=== PATIENT | female | born 1955 | race Caucasian/White ===

== ENCOUNTER 2016-10-22 14:19 | Emergency (ER) | payer MEDICAID ==
[~2016-10-22] VITALS: Ht 162.6 cm; Wt 113.4 kg
[2016-10-22 14:20] VITALS: BP 131/74
[2016-10-22 15:51] LABS: BASOPHILS % (AUTO) 1.8 % (0.0-2.0); EOSINOPHILS % (AUTO) 5.7 % (0.0-3.0); LYMPHOCYTES % (AUTO) 17.4 % (20.0-45.0); MEAN CORPUSCULAR HEMOGLOBIN 27.2 PG (27.0-31.0); MEAN CORPUSCULAR HGB CONC 30.9 G/DL (32.0-36.0); MEAN CORPUSCULAR VOLUME 88 FL (80-99); MEAN PLATELET VOLUME 8.2 FL (6.5-10.1); MONOCYTES % (AUTO) 12.4 % (1.0-10.0); NEUTROPHILS % (AUTO) 62.7 % (45.0-75.0); PLATELET COUNT 147 K/UL (150-450); RED BLOOD COUNT 4.15 M/UL (4.20-5.40); RED CELL DISTRIBUTION WIDTH 15.5 % (11.6-14.8); WHITE BLOOD COUNT 7.1 K/UL (4.8-10.8)
[2016-10-22 16:00] VITALS: BP 128/67
[2016-10-22 16:04] LABS: TROPONIN I < 0.30 ng/mL (<=0.30)
[2016-10-22 16:06] LABS: CALCIUM 8.4 mg/dL (8.6-10.2); CREATININE 3.2 mg/dL (0.5-0.9); GLOMERULAR FILTRATION RATE 14.8 mL/min (>60); TOTAL PROTEIN 6.2 g/dL (6.6-8.7)
[2016-10-22 16:10] LABS: MAGNESIUM 0.8 mg/dL (1.7-2.5)
[2016-10-22 16:17] LABS: CKMB 2.6 ng/mL (< 3.8)
[2016-10-22] MEDS ORDERED: Morphine Sulfate 4mg/ml Inj IVP ONE (16:45)
--- NOTE | 2016-10-22 16:51 | Emergency Room Report ---
History of Present Illness General Chief Complaint: Abnormal Labs Source: EMS Present Illness HPI 61-year-old female presents to ED for evaluation. Patient resides in SNF. She referred for low magnesium level. PMD Dr. Joseph referred patient because he is trying to treat the low magnesium with oral medication but he keeps getting lower. Has been going on for several days now. Upon arrival patient is in no signs of distress. Complaining of some generalized pain. /10. Throbbing. Nonradiating. No other aggravating or relieving factors. Denies any fevers or chills. Denies chest pain or shortness of breath. Denies nausea or vomiting. No other aggravating or relieving factors. Any other associated symptoms Allergies: Coded Allergies: No Known Allergies (Unverified , 10/22/16) Patient History Past Medical History: DM, HTN, asthma Past Surgical History: none Pertinent Family History: none Social History: Denies: alcohol use, drug use, smoking Now: No Immunizations: UTD Reviewed Nursing Documentation: PMH: Agreed, PSxH: Agreed Nursing Documentation-PMH Past Medical History: No History, Except For Hx Hypertension: Yes Hx Asthma: Yes Hx COPD: No - PNA Hx Diabetes: Yes Hx Dialysis: No - [facility] CELLULIT[facility] Review of Systems All Other Systems: negative except mentioned in HPI Physical Exam Vital Signs Date Time Temp Pulse Resp B/P Pulse Ox O2 Delivery O2 Flow Rate FiO2 10/22/16 14:16 98.6 92 20 84/35 90 Room Air Sp02 EP Interpretation: reviewed, normal General Appearance: no apparent distress, alert, GCS 15, non-toxic, obese Head: normocephalic, atraumatic Eyes: bilateral eye PERRL, bilateral eye normal inspection ENT: hearing grossly normal, normal pharynx, no angioedema, normal voice Neck: full range of motion, supple/symm/no masses Respiratory: chest non-tender, lungs clear, normal breath sounds, speaking full sentences Cardiovascular #1: regular rate, rhythm, no edema Cardiovascular #2: 2+ carotid (R), 2+ carotid (L), 2+ radial (R), 2+ radial (L) , 2+ dorsalis pedis (R), 2+ dorsalis pedis (L) Gastrointestinal: normal bowel sounds, non tender, soft, non-distended, no guarding, no rebound Rectal: deferred Genitourinary: normal inspection, no CVA tenderness Musculoskeletal: back normal, gait/station normal, normal range of motion, non- tender Neurologic: alert, oriented x3, responsive, motor strength/tone normal, sensory intact, speech normal Psychiatric: judgement/insight normal, memory normal, mood/affect normal, no suicidal/homicidal ideation Reflexes: 3+ bicep (R), 3+ bicep (L), 3+ tricep (R), 3+ tricep (L), 3+ knee (R) , 3+ knee (L) Skin: normal color, no rash, warm/dry, well hydrated Lymphatic: no adenopathy Medical Decision Making Diagnostic Impression: Primary Impression: Hypomagnesemia Additional Impressions: Hyperkalemia CKD (chronic kidney disease) Qualified Codes: N18.4 - Chronic kidney disease, stage 4 (severe) ER Course Hospital Course 61-year-old female referred to ED for abnormal labs. Reported low magnesium and elevated creatinine Differential diagnoses include: hypomagnesemia, torsades, hypokalemia Clinical course Patient placed on stretcher. on cardiac catheterization technician. After initial history and physical I ordered labs, EKG, IVFs labs reviewed- potassium 5.0. Cr 3.2. Hemoglobin/hematocrit normal. no leukocytosis, Mag 0.8, trop negative EKG - NSR, no acute changes, no prolonged QT Given Kayexalate. given magnesium IV. because of insurance patient will be transferred I. I feel this is a highly complex case requiring extensive working including EKG/Rhythm strip, Xray/CT/US, Blood/urine lab work, repeat exams while in ED, and administration of strong opiates/narcotics for pain control, admission to hospital or close patient follow up. Diagnosis - hyperkalemia, CKD, hypomagnesemia transferred to [facility] in serious condition Labs Test 10/22/16 15:32 White Blood Count 7.1 K/UL (4.8-10.8) Red Blood Count 4.15 M/UL (4.20-5.40) Hemoglobin 11.3 G/DL (12.0-16.0) Hematocrit 36.6 % (37.0-47.0) Mean Corpuscular Volume 88 FL (80-99) Mean Corpuscular Hemoglobin 27.2 PG (27.0-31.0) Mean Corpuscular Hemoglobin Concent 30.9 G/DL (32.0-36.0) Red Cell Distribution Width 15.5 % (11.6-14.8) Platelet Count 147 K/UL (150-450) Mean Platelet Volume 8.2 FL (6.5-10.1) Neutrophils (%) (Auto) 62.7 % (45.0-75.0) Lymphocytes (%) (Auto) 17.4 % (20.0-45.0) Monocytes (%) (Auto) 12.4 % (1.0-10.0) Eosinophils (%) (Auto) 5.7 % (0.0-3.0) Basophils (%) (Auto) 1.8 % (0.0-2.0) Sodium Level 138 mEQ/L (135-145) Potassium Level 5.0 mEQ/L (3.4-4.9) Chloride Level 97 mEQ/L (98-107) Carbon Dioxide Level 26 mEQ/L (20-30) Anion Gap 15 (5-15) Blood Urea Nitrogen 20 mg/dL (7-23) Creatinine 3.2 mg/dL (0.5-0.9) Estimat Glomerular Filtration Rate 14.8 mL/min (>60) Glucose Level 200 mg/dL (74-106) Calcium Level 8.4 mg/dL (8.6-10.2) Magnesium Level 0.8 mg/dL (1.7-2.5) Total Bilirubin 0.5 mg/dL (0.0-1.2) Aspartate Amino Transf (AST/SGOT) 35 U/L (5-40) Alanine Aminotransferase (ALT/SGPT) 39 U/L (3-33) Alkaline Phosphatase 82 U/L (35-104) Total Creatine Kinase 42 U/L (26-140) Creatine Kinase MB 2.6 ng/mL (< 3.8) Creatine Kinase MB Relative Index 6.1 Troponin I < 0.30 ng/mL (<=0.30) Pro-B-Type Natriuretic Peptide 178 pg/mL (0-125) Total Protein 6.2 g/dL (6.6-8.7) Albumin 3.2 g/dL (3.5-5.2) Globulin 3.0 g/dL Albumin/Globulin Ratio 1.0 (1.0-2.7) EKG Diagnostic Results Rate: normal Rhythm: NSR ST Segments: no acute changes ASA given to the pt in ED: No Rhythm Strip Diag. Results EP Interpretation: yes Rhythm: NSR, no PVC's, no ectopy Last Vital Signs Date Time Temp Pulse Resp B/P Pulse Ox O2 Delivery O2 Flow Rate FiO2 10/22/16 14:20 98.0 90 17 131/74 98 Room Air Status: improved Disposition: XFER T-[facility] Condition: Serious Referrals: HOLLY LAMAS (PCP) PETER SANON M.D. October 22, 2016 16:51
[2016-10-22 18:00] VITALS: BP 117/70
[2016-10-22] MEDS ORDERED: AMARYL2 MG ORAL (18:07)
[2016-10-22] MEDS ORDERED: VITAMIN C500 M1 ORAL (18:09)
[2016-10-22] MEDS ORDERED: BENADRYL25 MG ORAL (18:12)
[2016-10-22] MEDS ORDERED: BISACODYL5 MG ORAL (18:22)
[2016-10-22] MEDS ORDERED: BISACODYL10 M1 RC (18:22)
[2016-10-22] MEDS ORDERED: SYMBICORT 16010.2 G1 IH (18:40)
[2016-10-22] MEDS ORDERED: CALAMINE LOTIO177 ML TP (18:41)
[2016-10-22] MEDS ORDERED: CATAPRES0.1 MG ORAL (18:43)
[2016-10-22] MEDS ORDERED: FLEET ENEMA133 ML RECTAL (18:44)
[2016-10-22] MEDS ORDERED: LEVEMIR FL100 UNIT/1 SUBQ (18:52)
[2016-10-22] MEDS ORDERED: MELATONIN 1 MG1 EAC1 ORAL (18:56)
[2016-10-22] MEDS ORDERED: MELATONIN1 M2 PO (18:56)
[2016-10-22] MEDS ORDERED: METFORMIN HCL500 M1 ORAL (18:57)
[2016-10-22] MEDS ORDERED: MILK OF MA400 MG/51 ORAL (19:00)
[2016-10-22] MEDS ORDERED: MORPHINE SULFAT15 MG PO (19:16)
[2016-10-22] MEDS ORDERED: MULTIVITAMINS1 EAC2 ORAL (19:17)
[2016-10-22] MEDS ORDERED: NEXIUM40 MG ORAL (19:24)
[2016-10-22 19:25] VITALS: BP 121/66
[2016-10-22] MEDS ORDERED: NITROGLYCERIN0.4 MG SL (19:25)
[2016-10-22] MEDS ORDERED: NYSTATIN15 GM TOPIC (19:35)
[2016-10-22] MEDS ORDERED: POLYVINYL ALCOH15 ML OP (19:37)
[2016-10-22] MEDS ORDERED: Sodium Polystyrene Sulfonate 15gm Powder ORAL ONE (19:45)
[2016-10-22] MEDS ORDERED: ALBUTEROL2.5 MG/3 M INH (19:50)
[2016-10-22 21:14] VITALS: BP 124/76
[2016-10-22 21:25] VITALS: BP 124/76
--- NOTE | 2016-10-23 16:26 | Cardiology Report ---
APPROVED REPORT EKG Measurement Heart [id number] Normal sinus rhythm Low voltage QRS Cannot rule out Anterior infarct, age undetermined Abnormal ECG
== END 2016-10-22 21:25 | disposition short-term general hospital (02) ==
LOC: EDBD 14:19 → EMR 14:43 → EDBEDREQ 16:34 → EMR 21:25
DX: N18.4 Chronic kidney disease, stage 4 (severe) (principal); E83.42 Hypomagnesemia; E87.5 Hyperkalemia; E11.22 Type 2 diabetes mellitus with diabetic chronic kidney disease; I12.9 Hypertensive chronic kidney disease with stage 1 through stage 4 chronic kidney disease, or unspecified chronic kidney disease; J45.909 Unspecified asthma, uncomplicated
CPT/HCPCS: 36415; 80053; 82550; 82553; 83735; 83880; 84484; 85025; 93005; 96360; 96361; 96374; 99284; J2270; J7040